=== PATIENT | female | born 1980 | race Caucasian/White ===

== ENCOUNTER 2025-01-28 07:51 | Emergency (ER) | payer SELFPAY ==
--- NOTE | ~2025-01-28 | CT_ITS ---
EXAM/PROCEDURE: CT lumbar spine wo con HISTORY: low back pain COMPARISON: None available. TECHNIQUE: Lumbar spine CT FINDINGS: No acute or aggressive bony or soft tissue process seen. Degenerative changes present throughout the lumbar spine involving disc spaces and posterior elements. No severe spinal calcinosis or large disc herniation. No gross paraspinal or prevertebral acute soft tissue process seen. Incidentally noted partially visualized punctate nonobstructive stones in both kidneys. Trace amount of free fluid in the visualized portions of the lower pelvis. IMPRESSION: Multilevel degenerative changes with no large disc herniation or severe spinal canal stenosis. Other incidental findings as above. For optimal sensitivity, consider lumbar spine MRI as clinically appropriate. Reviewed, dictated and finalized at location A. JAVA DEVELOPER ARCHITECT IMPRESSION: Multilevel degenerative changes with no large disc herniation or severe spinal canal stenosis. Other incidental findings as above. For optimal sensitivity, co nsider lumbar spine MRI as clinically appropriate.
[2025-01-28 07:56] VITALS: BP 215/108; PULSE 84; RESP 20; TEMP 36.9; O2SAT 99
--- OUTSIDE RECORDS SUMMARY | 2025-01-28 07:56 | XMS_ITS | Clinical Summary ---
Author Organization [facility] [employer] Address [address] [place] [address] Care Team Providers Care Weed Inspector Name Role Phone Unavailable Primary Care Provider Unavailabl e Source Comments [facility],non-owned Affiliates and Associated Physician Practices is amultiple site organization consisting of ambulatory clinics and hospital sitesin [place], [place], [place] and [place]. This disclosure is being madepursuant to the Care Everywhere program and may not contain all information available regarding this patient. Last updated 17.[facility] [employer] Allergies Active Allergy Reactions Criticality Noted Date Comments Penicillins Rash Medium 06/13/2022 Medications * Be aware that medications may not be up to date on this document. Alwaysverify current medications with the patient. diphenhydrAMINE (Benadryl) 25 MG tablet every 24 hours Active sulfamethoxazole -trimethoprim (Bactrim DS; Septra DS) 800-160 MG tablet 10/23/2022 Active lisinopril (Prinivil; Zestril) 10 MG tablet 10/23/2022 Active triamcinolone acetonide (Kenalog) 0.1 % ointment 10/23/2022 Active hydrOXYzine pamoate (Vistaril) 25 MG capsule 10/23/2022 Active valACYclovir (Valtrex) 1 GM tabletIndication s:Rash and other nonspecific skin eruption Take 1 (one) tablet by mouth 3 times daily 21 tablet 10/25/2022 Active clobetasol (Temovate) 0.05 % ointmentIndicati ons:Rash and other nonspecific skin eruption Apply to rash twice daily. 30 days supply. 60 g 3 04/13/2023 Active Active Problems Problem Noted Date Diagnosed Date Thyroid nodule 10/26/2022 10/26/2022 Internal hordeolum 06/09/2021 10/26/2022 Ingrowing toenail 12/31/2020 10/26/2022 Onychomycosis of toenail 12/31/2020 023 Immunizations Immunization Administration Dates Next Due Eduardo Castellanos primary monovalent 12+ yr 0.5mL ,09/21/2020 INFLUENZA VACCINE 03/20/2022 Family History Medical History Relation Name Comments None Known Brother None Known Father None Known Maternal Aunt None Known Maternal Grandfather None Known Maternal Grandmother None Known Maternal Uncle None Known Mother None Known Other None Known Paternal Aunt None Known Paternal Grandfather None Known Paternal Grandmother None Known Paternal Uncle Psoriasis Sister Asthma Neg Hx CVA Neg Hx Cancer - Breast Neg Hx Cancer - Other Neg Hx Cancer - Skin, Melanoma Neg Hx Cancer - Skin, Non Melanoma Neg Hx Eczema Neg Hx Hemophilia Neg Hx Relation Name Status Comments Brother Father Maternal Aunt Maternal Grandfather Maternal Grandmother Maternal Uncle Mother Other Paternal Aunt Paternal Grandfather Paternal Grandmother Paternal Uncle Sister Social History Tobacco Use Types Packs/Day Years Used Date Smoking Tobacco: Every Day Cigarettes 0.5 25 Passive Smoke Exposure: Never Smokeless Tobacco: Never Tobacco Cessation:Ready to Q uit: Not Asked; Counseling Given: Not Answered Alcohol Use Standard Drinks/Week Comments Yes 0 (1 standard drink = 0.6 oz pur e alcohol) 1/week Comments Unknown Sex and Gender Information Value Date Recorded Sex Assigned at Not on file Legal Sex Female 11:06 AM CDT Gender Identity Not on file Sexual Orientation Not on file Plan of Treatment Health Maintenance Due Date Last Done Comments COLOGUARD (AGES 45-75) - COL ON CA SCREENING 1978 COLON MONITORING 1978 COLONOSCOPY - COLON CA SCREENING 1978 CT COLONOGRAPHY - COLON CA SCREENING 1978 Colorectal Cancer Screening 1978 FIT - COLON CA SCREENING 1978 FLEX SIG - COLON CA SCREENING 1978 LIPID TESTING 1978 MAMMOGRAM 1978 HIV SCREENING 1993 HEPATITIS C SCREENING 05/25/1996 DTAP/TDAP/TD VACCINES (1 - Tdap) 1997 HEPATITIS B VACCINE (1 of 3 - 19+ 3-dose series) 1997 PNEUMOCOCCAL VACCINE (1 of 2 - PCV) 1997 DEPRESSION SCREENING 03/19/2024 COVID-19 VACCINE (3 - 2024-2 6 season) 2024 10/19/2020, 09/21/2020 INFLUENZA VACCINE (#1) 2024 03/20/2022 ZOSTER VACCINE (1 of 2) 2028 HIB VACCINE Aged Out No longer eligi ble based on patient's age to complete this topic HPV VACCINE Aged Out No longer eligi ble based on patient's age to complete this topic MENINGOCOCCAL (Group B) VACCINE SHARED DECISION-MAKING Aged Out No longer eligible based on patient's age to complete this topic MENINGOCOCCAL GROUPS A/C/Y/W VACCINE Aged Out No longer eligible b ased on patient's age to complete this topic Insurance [facility]
--- OUTSIDE RECORDS SUMMARY | 2025-01-28 07:56 | XMS_ITS | Encounter Summary ---
Author Organization [facility] Address [address] [place] [address] Care Team Providers Care Screener Perfumer Name Role Phone Unavailable Primary Care Provider Unavailabl e Reason for Visit * Reason Onset Date Comments Question 11/16/2023 Encounter Details Date Type Department Care Team (Late st Contact Info) Description 11/16/2023 Telephone [facility] - General Dermatology [address] [place] [address] Marika Marlow DO [address] [place] [address] Question Social History Tobacco Use Types Packs/Day Years Used Date Smoking Tobacco: Every Day Cigarettes 0.5 25 Passive Smoke Exposure: Never Smokeless Tobacco: Never Alcohol Use Standard Drinks/Week Comments Yes 0 (1 standard drink = 0.6 oz pur e alcohol) 1/week Comments Unknown Sex and Gender Information Value Date Recorded Sex Assigned at Not on file Legal Sex Female 11:06 AM CDT Gender Identity Not on file Sexual Orientation Not on file documented as of this encounter Miscellaneous Notes * Telephone Encounter - Roseline Loco MD - 11/23/2023 12:02 PM CDT Defer refills until appointment scheduled * Telephone Encounter - Diaz Kimble - 11/16/2023 4:16 PM CDT Pt calling because she is experiencing an outbreak and doesn't have any cream. Went to pharmacy butthey told her she needs to call refills exp and dr would need to resend prescription documented in this encounter Plan of Treatment Not on file documented as of this encounter Visit Diagnoses Not on filedocumented in this encounter
--- NOTE | 2025-01-28 10:55 | ED_ITS ---
HPI - Back Pain/Injury General Chief Complaint: Back Pain/Injury Stated Complaint: back pain Time Seen by Provider: 01/28/25 10:41 Source: patient Mode of arrival: ambulatory Limitations: no limitations History of Present Illness HPI Narrative: This is a 44-year-old female that presents to the emergency department for low back pain. Ongoing since she bent over on Sunday while doing some cleaning. Reports pain is in the low back, worse with movement. She has not taken anything for pain yet today. Denies saddle anesthesia, bowel/bladder incontinence. Related Data Allergies Allergy/AdvReac Type Severity Reaction Status Date / Time Penicillins Allergy Unknown Rash Verified 01/28/25 07:58 Review of Systems Review of Systems: All systems reviewed & are unremarkable except as noted in HPI and below PMFSH Past Medical History Medical History (Updated 01/28/25 @ 14:05 by Natasha Lee PA-C) No active medical problems Exam Narrative: GENERAL: Uncomfortable, well-nourished, and in no acute distress. HEAD: Normocephalic, atraumatic. EYES: EOMI. CHEST: Clear to auscultation. No respiratory distress. No wheezes rales or rhonchi HEART: Regular rate and rhythm. No murmur heard. Normal peripheral pulses. EXTREMITIES: Normal range of motion. No edema. Strength equal in bilateral lower extremities (5/5) SKIN: Warm, dry, no rash. NEURO: No focal deficits. Alert and oriented x3. PSYCH: Normal mood and affect Course Vital Signs Vital signs: Vital Signs Temperature 98.4 F 01/28/25 07:56 Pulse Rate 84 01/28/25 07:56 Respiratory Rate 20 01/28/25 07:56 Blood Pressure 215/108 H 01/28/25 07:56 Pulse Oximetry 99 01/28/25 07:56 Oxygen Delivery Room Air 01/28/25 07:56 Temperature 97.9 F 01/28/25 12:26 Pulse Rate 77 01/28/25 12:26 Respiratory Rate 18 01/28/25 12:26 Blood Pressure 165/91 H 01/28/25 12:26 Pulse Oximetry 100 01/28/25 12:26 Oxygen Delivery Room Air 01/28/25 07:56 MDM - Back Pain/Injury MDM Narrative Medical decision making narrative: Patient presents the emergency department for low back pain. She is neurologically intact. No recent injuries or trauma. CT lumbar spine showing multilevel degenerative changes without large disc herniation or severe spinal canal stenosis. Patient updated on her workup and agrees with plan of care. Instructed to have follow-up with primary provider. She was given warnings to return to the ER Differential Diagnosis Differential diagnosis: Likely lumbar radiculopathy, sciatica and strain of lumbar region Imaging Data Radiologist's impression: ITS Impressions Lumbar Spine CT 01/28/25 11:34 IMPRESSION: Multilevel degenerative changes with no large disc herniation or severe spinal canal stenosis. Other incidental findings as above. For optimal sensitivity, consider lumbar spine MRI as clinically appropriate. Critical Care Time Critical Care Time Critical Care Time: No Discharge Plan Discharge Clinical Impression: Strain of lumbar region Qualifiers: Encounter type: initial encounter Qualified Code(s): S39.012A - Strain of muscle, fascia and tendon of lower back, initial encounter Degenerative disc disease Qualifiers: Spinal region: lumbar Disc-related pain type: discogenic back pain and lower extremity pain Qualified Code(s): M51.362 - Other intervertebral disc degeneration, lumbar region with discogenic back pain and lower extremity pain Patient Disposition: Home Condition: Stable Instructions: Back Pain (ED) Additional Instructions: Return to the ER if you experience weakness, numbness, bowel/bladder incontinence, or any other symptoms that are concerning to you Rest, use ice/heat, take anti-inflammatories (Aleve, Ibuprofen, Naproxen, etc) or Tylenol as needed for pain as well as muscle relaxer (Flexeril) as needed for pain. Muscle relaxers can make you drowsy, do not drive if you take this. Lidocaine patch to the area of pain as needed Follow up with your primary care doctor Patient Language: Lithuanian Prescriptions: New lidocaine 5 % adhesive patch,medicated 1 patch topical DAILY Qty: 15 0RF Rx Instructions: leave on most painful area for up to 12 hrs cyclobenzaprine 10 mg tablet 10 mg PO TID PRN (Reason: muscle spasm) Qty: 14 0RF Follow-up/Referrals: Riki Hansen MD [Physician, Family Practice] UNKNOWN,DOCTOR [Primary Care Provider] Stand Alone Forms: Work/School Release IP
[2025-01-28] MEDS: diazePAM INJ (*CRX) 10 MG/2 ML SYRINGE 5 MG IM (11:00)
[2025-01-28] MEDS: KETOROLAC 30 MG/ML VIAL (*BKC) IM (11:00)
[2025-01-28] MEDS: ACETAMINOPHEN 500 MG TABLET 1000 MG PO (11:01)
[2025-01-28 11:08] VITALS: TEMP 36.6
[2025-01-28 12:26] VITALS: BP 165/91; PULSE 77; RESP 18; TEMP 36.6; O2SAT 100
--- NOTE | 2025-01-28 12:30 | PC.NURSE ---
PT requesting a snack. Per Natasha, it is okat to give them one. Pt resting comfortably at this time.
--- OUTSIDE RECORDS SUMMARY | 2025-01-28 12:56 | XMS_ITS | Encounter Summary ---
Author Organization [facility] Health Address [address] [address] Care Team Providers Care Dietary Aide Teacher Name Role Phone Unavailable Primary Care Provider Unavailabl e Reason for Visit * Reason Onset Date Comments Question 11/16/2023 Encounter Details Date Type Department Care Team (Late st Contact Info) Description 11/16/2023 Telephone [facility] - General Dermatology [address] [place] [address] Marika Marlow DO [address] [place] [address] Question Social History Tobacco Use [...]
--- OUTSIDE RECORDS SUMMARY | 2025-01-28 12:56 | XMS_ITS | Clinical Summary ---
Author Organization [facility] [employer] Address [address] [place] [address] Care Team Providers Care Access Services Representative Name Role Phone Unavailable Primary Care Provider Unavailabl e Source Comments [facility],non-owned Affiliates and Associated Physician Practices is amultiple site organization consisting of ambulatory clinics and hospital sitesin [place], [place], [place] and [place]. This disclosure is being madepursuant to the Care Everywhere program and may not contain all information available regarding this patient. Last updated 17.[facility] [employer] Allergies Active Allergy Reactions Criticality Noted Date [...] patient's age to complete this topic Insurance [facility]
--- OUTSIDE RECORDS SUMMARY | 2025-01-28 12:56 | XMS_ITS | Data Portability ---
Author Organization [facility] Address [address] [place] [address] Care Team Providers Care Snowmaker Name Role Phone DEANGELO VAUGHAN Primary Care Provider Unavailab le Assessment No assessment recorded. Plan of Treatment Reminders Order Date Submit Date Provider Last Modified By Organization Details Last Modified Time Details Appointments None recorded . Lab None recorded . Referral dermatol ogist referral - Please call patient for appointm ent, thanks! Dr. Latonia siu. [phone]. 2022 023 [email or web address] Derik Flores MD ([facility], Dermatology), [facility] [place], [address], 10:19:28 dermatol ogist referral - Please call patient for appointm ent thanks! 2021 MISTI Moore MD, [address] [facility], [place], [address], 15:10:37 dermatol ogist referral 2021 [email or web address] [place], [address] [place] [address], [address], 14:12:28 Procedures None recorded . Surgeries None recorded . Imaging None recorded . Medication Orders betameth asone dipropio renetta 0.05 % topical ointment 2021 [facility] #00404, [address] [place], [place], [id number], 14:44:05 Medrol (Tera) 4 mg tablets in a dose pack 2021 [facility] #58429, [address] [place], [place], [id number], 3 11:37:08 Juliana Allergy 60 mg tablet 2021 [facility] #87409, [address] [place], [place], [id number], 14:44:04 Singulai r 10 mg tablet 2021 [facility] #88309, [address] [place], [place], [id number], 14:44:07 predniso ne 20 mg tablet 2021 [facility] #58049, [address] [place], [place], [id number], 14:15:42 betameth asone dipropio renetta 0.05 % topical ointment 2021 [facility] #32359, [address] [place], [place], [id number], 17:18:26 sulfamet hoxazole 800 mg-trime thoprim 160 mg tablet 2021 [facility] #37831, [address] [place], [place], [id number], 14:16:21 hydrocor tisone 1 % topical ointment 2021 [facility] #[id number] [place], [place], [id number], 16:47:06 ciproflo xacin 500 mg tablet 2021 [facility] #49713, [address] [place], [place], [id number], 17:10:28 Benadryl Allergy 25 mg tablet 2021 [facility] #16321, [address] [place], [place], [id number], 10:31:55 predniso ne 20 mg tablet 2021 [facility] #79699, [address] [place], [place], [id number], 14:15:42 erythrom ycin 5 mg/gram (0.5 %) eye ointment 2021 [facility] #19741, [address] [place], [place], [id number], 14:16:11 Patient TargetsNo targets recorded. Patient Instructions Encounter Date Encounter Id Patient Instructions Last Modified By Organization Details Last Modified Time 06/09/2021 [id number] Wlk-in in 7 days here for free BP check . [email or web address] Not available 06/13/2021 16:32:42 12/23/2021 [id number] ice to any itchy areas , wear socks on hands at night [email or web address] Not available 12/24/2021 11:25:36 02/14/2022 [id number] tetanus and diphtheria booster: care instructions [facility] Not available 02/14/2022 14:52:26 05/17/2022 [id number] A healthy lifestyle: care instructions [facility] Not available 05/17/2022 15:13:05 Reason for Referral Check Pilot Referral for C ontact dermatitis Referring Physician: Deangelo Vaughan, Family Medicine, Encounter Date: 12/23/2021 Check Pilot Referral for P ruritic rash Please call patient for appointment thanks! Referring Physician: Emmanuel Boucher, Internal Medicine, Encounter Date: 02/14/2022 Check Pilot Referral for I tching of skin Please call patient for appointment, thanks! Dr. Mimi siu.[phone]. Referring Physician: Emmanuel Boucher, Internal Medicine, Encounter Date: 05/17/2022 Problems Name Problem SNOMED Code Status Onset Date Resolution Date Notes Provider Name and Address Organization Details Recorded Time Thyroid nodule 990393254 Active Deangelo Vaughan PA-C Attn: Carlo[address] mann,[address] [place], [address], [place] [facility] 5 16:31:56 Upper respiratory infection 59131506 Active Deangelo Vaughan PA-C Attn: Carlo[address] mann,[address] [place], [address], [place] [facility] 5 16:31:56 Abscess of left axilla 6053538780785 9108 Active 2020 Deangelo Vaughan PA-C Attn: [address] mann,[address] [place], [address], [place] [facility] 1 14:32:04 Ingrowing nail 857345436 Active 2020 Deangelo Vaughan PA-C Attn: [address] mann,[address] [place], [address], [place] [facility] 1 14:33:03 Obese 745559505 Active 2020 Deangelo Vaughan PA-C Attn: Carlo[address] mann,[address] [place], [address], [place] [facility] 1 14:36:19 Hyperlipide amber screening Active 2020 Deangelo Vaughan PA-C Attn: Carloz mann,[address] [place], [address], [place] [facility] 1 14:36:33 Dog bite Active 2021 Deangelo Vaughan PA-C Attn: Carloz mann,[address] [facility], [place], [address], [place] [facility] 2 14:46:31 Internal hordeolum 904231726 Active 2021 Deangelo Vaughan PA-C Attn: Carloz mann,[address] [facility], [place], [address], [place] [facility] 2 11:33:26 Contact dermatitis 21983468 Active 2021 Deangelo Vaughan PA-C Attn: Carloz mann,[address] [facility], [place], [address], [place] - [facility] 2 16:45:18 Problem Notes None recorded. Procedures Surgical History Date Name Laterality Status Provider Name and Address Organization Details Recorded Time 06/02/19 21 Total hysterectomy completed Cara Huang MA [facility] 12/10/2020 14:20:24 05/19/19 21 biopsy completed Cara Huang MA [facility] 12/10/2020 14:20:56 07/25/19 04 Tubal Ligation completed Marjan Barreto [place] [facility] 01/19/2015 14:06:12 Imaging Results None recorded. Procedure Notes None recorded. Medical Equipment None Reported. Allergies Allergen ID Allergen Name Allergen Category Reaction Reaction Severity Criticality Documentation Date Start Date Code Code System Note Provider Name and Address Organization Details Recorded Time 91878 Product containin g penicilli n (product) medicatio n hives moderate Not available 01/19/2015 64846 8001 SNOMED Marjan Barreto MA null, [place] - [facility] 5 14:05:33 Medications Name Sig Start Date Stop Date Status Note LastModified by Organization Details LastModified Time ventolin hfa 108 (90 base) mcg/actaers 12/10 completed Not Available Not Available Not Available meloxicam 7.5 mg tabs 12/10 completed Not Available Not Available Not Available albuterol sulfate 0.63 mg/3ml nebu 12/10 completed Not Available Not Available Not Available ibuprofen 800 mg tabs 12/10 completed Not Available Not Available Not Available azithromyci n 250 mg tabs 12/10 completed Not Available Not Available Not Available hydrocodone /acetaminop hen 5-325 mgtabs 12/10 completed Not Available Not Available Not Available clindamycin hcl 300 mg caps 12/10 completed Not Available Not Available Not Available prednisone 10 mg tablet 12/23 completed Not Available Not Available Not Available clindamycin HCl 300 mg capsule 06/09 completed Not Available Not Available Not Available fexofenadin e 60 mg tablet TAKE 1 TABLET BY MOUTH TWICE DAILY active Not Available Not Available No t Available hydrocortis one 1 % topical ointment Apply 1 applicati on twice a day by topical route for 30 days. active Not Available Not Available No t Available prednisone 20 mg tablet Take 2 tablets twice a day by oral route as directed for 2 days. 02/14 completed Not Available Not Available Not Available ciprofloxac in 500 mg tablet Take 1 tablet every 12 hours by oral route for 10 days. 12/23 completed Not Available Not Available Not Available sulfamethox azole 800 mg-trimetho prim 160 mg tablet TAKE 1 TABLET BY MOUTH TWICE DAILY 02/14 completed Not Available Not Available Not Available terbinafine HCl 250 mg tablet 02/14 completed Not Available Not Available Not Available phenazopyri dine 100 mg tablet TAKE 2 TABLETS BY MOUTH THREE TIMES DAILY FOR 2 DAYS 12/10 completed Not Available Not Available Not Available erythromyci n 5 mg/gram (0.5 %) eye ointment APPLY 1 CM RIBBON INTO THE LOWER CONJUNCTI IDA SAC(S) IN THE AFFECTED EYE(S) BY OPHTHALMI C ROUTE at bedtime for 7 days . 02/14 completed Not Available Not Available Not Available Banophen 25 mg capsule active Not Available Not Available N ot Available montelukast 10 mg tablet TAKE 1 TABLET BY MOUTH EVERY DAY DIRECTED 2022 active Not Available Not Available Not Avai lable levofloxaci n 500 mg tablet TAKE 1 TABLET BY MOUTH EVERY DAY FOR 10 DAYS 12/10 completed Not Available Not Available Not Available methylpredn isolone 4 mg tablets in a dose pack Take 1 dose pk every day by oral route after meals for 6 days. 05/17 completed Not Available Not Available Not Available ketoconazol e 2 % topical cream 05/31 completed Not Available Not Available Not Available betamethaso ne dipropionat e 0.05 % topical ointment APPLY A THIN LAYER TO THE AFFECTED AREA(S) BY TOPICAL ROUTE ONCE DAILY active Not Available Not Available No t Available clotrimazol e 1 % topical cream active Not Available Not Available Not Available Benadryl Allergy 25 mg tablet Take 1 tablet every day by oral route at dinner for 30 days. 2022 active Not Available Not Available Not Avai lable Vitals Date Recorded Body height Body mass index (BMI) Body weight Oxygen saturation Oxygen saturation in Arterial blood by Pulse oximetry Heart rate Systolic And Diastolic Provider Name and Address Organization Details Last Updated DateTime 3 170.18 cm 33.6 kg/m2 50254.2 g 96 % 96 % 83 /min 128/80 mm[Hg] Cara Huang MA [facility] 3 11:44:02 Date Recorded Body height Body mass index (BMI) Body weight Oxygen saturation Oxygen saturation in Arterial blood by Pulse oximetry Heart rate Systolic And Diastolic Provider Name and Address Organization Details Last Updated DateTime 2 170.18 cm 34.2 kg/m2 25561.5 7 g 97 % 97 % 83 /min 142/90 mm[Hg] Cara Huang MA [facility] 2 11:10:48 Date Recorded Body height Body mass index (BMI) Body weight Oxygen saturation Oxygen saturation in Arterial blood by Pulse oximetry Heart rate Systolic And Diastolic Provider Name and Address Organization Details Last Updated DateTime 2 170.18 cm 33.2 kg/m2 11190.5 8 g 98 % 98 % 88 /min 142/86 mm[Hg] Janneth Blakely [place] [facility] 2 16:38:48 Date Recorded Body height Body mass index (BMI) Body weight Oxygen saturation Oxygen saturation in Arterial blood by Pulse oximetry Heart rate Systolic And Diastolic Provider Name and Address Organization Details Last Updated DateTime 2 170.18 cm 32.1 kg/m2 68163.7 2 g 96 % 96 % 99 /min 152/84 mm[Hg] Cara Huang [place] [facility] 2 17:13:37 Date Recorded Body height Body mass index (BMI) Body weight Oxygen saturation Oxygen saturation in Arterial blood by Pulse oximetry Heart rate Systolic And Diastolic Provider Name and Address Organization Details Last Updated DateTime 2 170.18 cm 32.1 kg/m2 62666.7 2 g 97 % 97 % 89 /min 148/90 mm[Hg] Cara Huang [place] [facility] 2 14:20:16 Social History Question Answer Notes LastModified by Organizat ion Details LastModified Time Tobacco Smoking Status Current Every Day Smoker Cara Huang MA null, [facility] 05/17/2022 11:42:08 Are You Blind Or Do You Have Difficulty Seeing? Yes Contacts And Glasses Information not available 12/10/2020 What Is Your Level Of Caffeine Consumption? Occasional Information not available 12/10/2020 Are You Deaf Or Do You Have Serious Difficulty Hearing? Yes Ears Feel Plugged Information not available 12/10/2020 What Type Of Diet Are You Following? REGULAR Information not available 12/10/2020 Are There Any Guns Present In Your Home? No Information not available 12/10/2020 What Was The Date Of Your Most Recent Tobacco Screening? 05/17/2022 Information not available 05/17/2022 How Many Children Do You Have? 3 Information not available 12/10/2020 Do You Use Protection During Sex? No Information not available 12/10/2020 What Is Your Relationship Status? Information not available 12/10/2020 Do You Use Your Seat Belt Or Car Seat Routinely? Yes Information not available 12/10/2020 Are You Sexually Active? Yes Information not available 12/10/2020 Do You Have Smoke And Carbon Monoxide Detectors In Your Home? Yes Information not available 12/10/2020 Are You Passively Exposed To Smoke? No Information not available 12/10/2020 How Much Tobacco Do You Smoke? 0.5 PPD Information not available 05/17/2022 Do You Use Sunscreen Routinely? Yes Information not available 12/10/2020 Has Tobacco Cessation Counseling Been Provided? Yes Information not available 12/10/2020 On What Date Was Tobacco Cessation Counseling Provided? 02/14/2022 Information not available 02/14/2022 How Many Years Have You Smoked Tobacco? 30 Information not available 12/10/2020 Sex: Female Functional Status Question Answer Note LastModified by Organizat ion Details LastModified Time Do you use any illicit or recreational drugs? No Information not available 12/10/2020 Do you or have you ever used any other forms of tobacco or nicotine? No Information not available 12/10/2020 What is your level of alcohol consumption? Occasional Information not available 12/10/2020 Are you currently employed? Yes Information not available 12/10/2020 Are you able to care for yourself independently? 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 Heavy Information not available 12/10/2020 Mental Status Question Answer Note LastModified by Organization D etails LastModified Time Do you feel stressed (tense, restless, nervous, or anxious, or unable to sleep at night)? [id number] Information not available 12/10/2020 Family History Relationship Description Onset Age of this Age Resolved Age Notes LastModified by Organization Details LastModified Time Sister Metastatic malignant neoplasm to lymph node [email or web address] Not available 01/19 14:07:12 Medical History No medical history recorded. Gynecological HistoryNo gynecological history recorded. Obstetrics History GPAL:G 0 P 0 0 0 0 Immunizations Vaccine Type Date Status Note Provider Nam e and Address Organization Details Recorded Time COVID-19, mRNA, LNP-S, PF, 100 mcg/0.5mL dose or 50 mcg/0.25mL dose 09/21/2020 completed ROSY Spivey, [place] [facility] 12/10/2020 14:10:45 COVID-19, mRNA, LNP-S, PF, 100 mcg/0.5mL dose or 50 mcg/0.25mL dose 10/19/2020 completed Cara Huang [place] sel[place], [place] [facility] 12/10/2020 14:10:55 Past Encounters Encounter ID Performer Location Encounter Start Date Encounter Closed Date Diagnosis/Indication Diagnosis SNOMED-CT Code Diagnosis ICD10 Code Diagnosis IMO Codes Diagnosis Note [id number] MD Chayito Wylie (Adult Med) [address] [place] [address] 01/19/2015 13:34:53 01/20/2015 12:49:50 Thyroid nodule 883784720 E04.1 Upper resp iratory infection 41186954 J06.9 [id number] MD Chayito Wylie (Adult Med) [address] [place] [address] 12/10/2020 13:49:29 12/15/2020 10:29:08 Abscess of left axilla 4679346258 3654744 L02.412 Ingrowing nail 028130466 L60.0 Obese 522114709 E66.9 Hyperlipid emia screening 801607000 Z13.619 [id number] MD Chayito Wylie (Adult Med) [address] [place] [address] 05/31/2021 13:58:11 06/01/2021 11:42:43 Dog bite 542150654 W54.0XXA [id number] MD Chayito Wylie (Adult Med) [address] [place] [address] 06/09/2021 10:29:15 06/10/2021 06:38:32 Internal hordeolum 205554644 H00.029 Obese 794778386 E66.9 Dog bite 276037074 W54.0 XXA [id number] MD Chayito Wylie (Adult Med) [address] [place] [address] 11/25/2021 16:26:15 11/29/2021 08:18:49 Upper respiratory infection 50876593 J06.9 Contact dermatitis 13075 004 L25.9 [id number] MD Chayito Wylie (Adult Med) [address] [place] [address] 12/23/2021 17:05:13 12/26/2021 11:07:40 Contact dermatitis 34049741 L25.9 Abscess of left axilla 1642306975 7607686 L02.412 Obese 955468707 E66.9 [id number] MD Chayito Wylie (Adult Med) [address] [place] [address] 02/14/2022 13:55:45 02/17/2022 14:00:05 Pruritic rash 75770779 L28.2 It started in August 2021, woke up with it, first referral of dermatolog ist won't accept her insurance, will refer again to [facility] dermatolog ist and trying different med , she agreed. Administra tion of diphtheria, pertussis, and tetanus vaccine 808043123 Z23 It is contraindi cated due to acute skin rashes.. HIV screen ing declined 9401490846 48190 Z53.20 She declines 02-14-2022 . Influenza vaccination declined 567926898 Z28.21 It is contraindi cated due to active skin rashes, 02-14-2022 . [id number] MD Chayito Wylie (Adult Med) [address] [place] [id number] 05/17/2022 11:35:16 05/19/2022 14:33:43 Obesity 763726952 E66.9 BMI is 33.6, diet, exercise and lose weight. 05-17-22. Itching of skin 71331591 0 L29.9 Will refer, she agreed. Health Concerns Section Related Observation LastModified by Organization Detai ls LastModified Time None Recorded Concern Status LastModified by Organization Details LastModified Time None Recorded Advance Directives Directive None Recorded Payers Insurance Date Sequence Insurance Name Policy Number Policy Mitchell Covered Member ID Mitchell Member ID Guarantor Name 05/17/2022 1 [facility] - DOS ON OR AFTER 20 (MEDICAID REPLACEMENT - HMO) Shannon Warren [id number] Shannon Warren 05/17/2022 1 [facility] (MEDICAID HMO) Shannon Laurent [id number] Shannon Warren Notes Date Note Type Note Provider Name and Address Organization Details Recorded Time 06/09/2021 text/html ROS as noted in the HPI 2 sutures left forearm . taking antibiotic Deangelo Vaughan PA-C Attn: [address] [place], [address], [place] [facility] 06/13/2021 16:32:56 11/25/2021 text/html ROS as noted in the HPI poison kobi all over Deangelo Vaughan PA-C Attn: [address] [place], [address], [place] [facility] 11/28/2021 15:17:26 12/23/2021 text/html ROS as noted in the HPI rash over legs , face trunk , very itchy , detergent does have mo fabric softener in it . boils under arms come and go Deangelo Vaughan PA-C Attn: [address] [facility], [place], [address], [place] [facility] 12/24/2021 11:25:52 02/14/2022 text/html ROS as noted in the HPI Office visit, allergic to penicillins, C/C skin rashes , very itching, on arms ,legs, trunk, had tried prednisolone , topical cortisone cream , slightly better, but still there, . Emmanuel Boucher MD Attn: [address] [place], [address], [place] [facility] 02/14/2022 14:52:57 05/17/2022 text/html ROS as noted in the HPI Office visit, allergic to penicillins. skin rashes on arms. and legs for almost a year. She has not changed anything for daily use, , has tried montelukast and topical steroid cream, but in vain. Will refer to software quality engineer, but on the past. she has been turned down due to health insurance , will try again for different referral. Emmanuel Boucher MD Attn: [address] [facility], [place], [address], [facility] 05/17/2022 18:22:12 OBGyn Episode No OBEpisode recorded.
== END 2025-01-28 14:21 | disposition home or self-care (01) ==
PROVIDERS: Emergency Provider Physician Assistant
DX: S39.012A Strain of muscle, fascia and tendon of lower back, initial encounter (principal); M51.362 Other intervertebral disc degeneration, lumbar region with discogenic back pain and lower extremity pain; X58.XXXA Exposure to other specified factors, initial encounter
CPT/HCPCS: 72131; 96372; 99284; A9270; J1885; J3360